=== PATIENT | female | born 1955 | race Two or more races ===

== ENCOUNTER → 2024-10-29 | Emergency (ER) | payer OTHER ==
[~2024-10-29] VITALS: Ht 162.6 cm; Wt 113.4 kg
[~2024-10-29] MED LIST: ASA81 MG; AVAPRO300 MG; DEXAMETHASONE SODIUM PHOSPHATE 4 MG/ML VIAL IM STA; DEXAMETHASONE SODIUM PHOSPHATE 4 MG/ML VIAL ONE; KETOROLAC TROMETHAMINE 60 MG VIAL IM ONE; KETOROLAC TROMETHAMINE 60 MG VIAL IM STA; MICARDIS HCT1 UDTAB; NABUMETONE750 MG PO; NORFLEX100MG PO; NORVASC5 MG; OMEPRAZOLE10 MG; TRAMADOL HCL 50 MG TABLET PO STA
== END | disposition home or self-care (01) ==
LOC: ER 06:57
DX: M25.561 Pain in right knee (principal); Z88.8 Allergy status to other drugs, medicaments and biological substances
CPT/HCPCS: 96372; 99283; J1100; J1885

== ENCOUNTER → 2025-03-09 | Emergency (ER) | payer OTHER ==
[~2025-03-09] VITALS: Ht 162.6 cm; Wt 107.0 kg
[~2025-03-09] MED LIST changes: -DEXAMETHASONE SODIUM PHOSPHATE 4 MG/ML VIAL IM STA; -DEXAMETHASONE SODIUM PHOSPHATE 4 MG/ML VIAL ONE; +GUAIFENESIN 200 MG/10 ML BLIST.PACK PO ONE; -KETOROLAC TROMETHAMINE 60 MG VIAL IM ONE; -KETOROLAC TROMETHAMINE 60 MG VIAL IM STA; -TRAMADOL HCL 50 MG TABLET PO STA
[2025-03-09 10:40] LABS: COVID-19 AG POSITIVE (NEGATIVE)
[2025-03-09 10:44] LABS: BASO % 0.8 % (0.1-1.2); EOS # 0.06 (0.04-0.54); EOS % 1.0 % (0.7-7.0); LYMPH # 1.34 (1.18-3.74); LYMPH % 21.7 % (19.3-53.1); MEAN PLATELET VOLUME 10.30 fl (9.4-12.4); MONO # 0.56 (0.24-0.82); MONO % 9.1 % (4.7-12.5); NEUT # 4.15 (1.56-6.13); NEUT % 67.2 % (34.0-71.1); RED CELL DISTRIBUTION WIDTH 13.4 % (11.6-14.4)
== END | disposition home or self-care (01) ==
LOC: ER 08:44
PROVIDERS: General Practice
DX: U07.1 COVID-19 (principal); I10 Essential (primary) hypertension